=== PATIENT | male | born 1970 | race Caucasian/White ===

== ENCOUNTER 2019-06-16 09:02 | Outpatient (CLI) | payer BC, OTHER ==
--- NOTE | 2019-06-16 10:05 | ULT ---
Testicular ultrasound: 06/16/2019 COMPARISON: None HISTORY: Spermatocele, pain TECHNIQUE: Multiplanar grayscale sonographic assessment of the scrotal contents with Doppler interrog ation of the testicles including color flow and spectral analysis. FINDINGS: Left testicle measures 3.1 x 4.8 x 3.4 cm and right testicle measures 5.1 x 2.4 x 3.4 cm. No intratesticular mass noted. Testicles demonstrate normal symmetric blood flow. The right epididymal head measures 1.6 x 1.0 cm mildly prominent vasculature within the inguinal magdiel l noted on the right with no increase with Valsalva. Left epididymal head measures 1.2 x 1.2 cm. In the left inguinal region there is prominent vascular s tructures which markedly increase with Valsalva, consistent with a left-sided varicocele. Tiny bilateral hydroceles are noted. IMPRESSION: No intratesticular or extratesticular mass. Left-sided varicocele.
== END 2019-06-16 09:03 | disposition home or self-care (01) ==
LOC: SCSULT 09:02
PROVIDERS: ATTEND Family Medicine
DX: N43.40 Spermatocele of epididymis, unspecified (principal); N50.82 Scrotal pain; I86.1 Scrotal varices
CPT/HCPCS: 76870; 93976